=== PATIENT | male | born 1975 | race Caucasian/White ===

== ENCOUNTER 2022-12-26 05:11 | Day surgery (SDC) | payer OTHER ==
[2022-12-25 14:16] VITALS: BMI 30.7
[2022-12-26 10:55] VITALS: BP 130/85; PULSE 79; RESP 16; TEMP 98
== END 2022-12-26 10:55 | disposition home or self-care (01) ==
LOC: JASU-ENDO 05:11
PROVIDERS: ATTEND Internal Medicine Gastroenterology
PROC: 0DB78ZX Excision of Stomach, Pylorus, Via Natural or Artificial Opening Endoscopic, Diagnostic (ICD-10-PCS; 2022-12-26)
PROC: 0DB68ZX Excision of Stomach, Via Natural or Artificial Opening Endoscopic, Diagnostic (ICD-10-PCS; principal; 2022-12-26 09:30)
DX: K29.70 Gastritis, unspecified, without bleeding (principal); B96.81 Helicobacter pylori [H. pylori] as the cause of diseases classified elsewhere; K31.7 Polyp of stomach and duodenum; I10 Essential (primary) hypertension
CPT/HCPCS: 88305-TC; 88341-TC; 88342-TC

== ENCOUNTER 2023-03-06 04:08 | Day surgery (SDC) | payer OTHER ==
[2023-03-05 11:43] VITALS: BMI 38.0
[2023-03-06 11:52] VITALS: TEMP 98
[2023-03-06 11:54] VITALS: PULSE 80
[2023-03-06 13:19] VITALS: BP 108/69; RESP 12
== END 2023-03-06 10:40 | disposition home or self-care (01) ==
LOC: JASU-ENDO 04:08
PROVIDERS: ATTEND Internal Medicine Gastroenterology
PROC: 0DJD8ZZ Inspection of Lower Intestinal Tract, Via Natural or Artificial Opening Endoscopic (ICD-10-PCS; principal; 2023-03-06 09:30)
DX: Z12.11 Encounter for screening for malignant neoplasm of colon (principal); K64.8 Other hemorrhoids; I10 Essential (primary) hypertension